=== PATIENT | male | born 2000 | race Caucasian/White ===

== ENCOUNTER 2019-04-15 15:55 | Emergency (ER) | payer MEDICAID ==
[~2019-04-15] VITALS: Ht 170.2 cm; Wt 69.9 kg
[2019-04-15 16:12] VITALS: BP 136/81
--- NOTE | 2019-04-15 16:20 | NUR ---
BIB SELF. AAO X4 C/O CHEST PAIN X 3 DAYS , PT STATES HE HAS INFECTED TOOTH AND PAIN STARTED THERE AND SINCE HAS RADIATED TO NECK AND LEFT SIDE OF CHEST. PT DENIES TAKING OTC PAIN MEDS. PT DENIES FEVER, N/V/D, SOB. FULL CLEAR SPEECH, NO FACIAL ASSYMETRY. EQUAL NAZANIN LUNGS CLEAR UPON AUSCULTATION. EQUAL NAZANIN UPPER AND LOWER STRENGTH. PT AMBULATED WITH STEADY GAIT. PT PLACED ON FULL DNA ANALYST. ER TO EVALUATE PT.
--- NOTE | 2019-04-15 16:30 | NUR ---
BRUSH CLEARER SURVEYING AT BEDSIDE FOR CHEST X RAY
[2019-04-15 18:16] VITALS: BP 124/76
--- NOTE | 2019-04-15 18:16 | NUR ---
Patient discharged with v/s stable. Written and verbal after care instructions given and explained. Patient alert, oriented and verbalized understanding of instructions. Ambulatory with steady gait. All questions addressed prior to discharge. ID band removed. Patient advised to follow up with PMD. Rx of IBUPROFEN & PREDNISONE given. Patient educated on indication of medication including possible reaction and side effects. Opportunity to ask questions provided and answered.
== END 2019-04-15 18:16 | disposition home or self-care (01) ==
LOC: EDSEX 15:55 → MED 15:55
DX: M94.0 Chondrocostal junction syndrome [Tietze] (principal)
CPT/HCPCS: 71045; 93005; 99283; Q0092